=== PATIENT | female | born 1940 | race Caucasian/White ===

== ENCOUNTER 2018-11-16 15:04 | Outpatient (CLI) | payer MEDICARE ==
--- NOTE | 2018-11-16 17:20 | MRI ---
MRI LUMBAR SPINE WITHOUT CONTRAST: HISTORY: Compression fracture of L3. Back pain. COMPARISON: 11/10/2018 FINDINGS: The vertebral bodies are fairly normal in height, other than some very minimal loss of vertebral body height involving the superior endplate of L3, without any marrow edema change. This would suggest t his may be an older injury. Marked disk narrowing is seen at L2-L3, L3-L4, and L4-L5. No significan t periaortic adenopathy. There is a probable right lobe hepatic cyst seen. There is a small T2 hype rintense area. T12-L1; Unremarkable. L1-L2: Disk bulge with facet changes. No canal or foraminal stenosis. L2-L3: Degenerative facet changes at this level, asymmetrically involving the right side, minimally impressing on the right side of the thecal sac, with borderline canal narrowing. No significant fora ki narrowing. L3-L4: No significant canal stenosis. Degenerative facet changes and disk bulge are present. There is some mild left and some borderline right-sided foraminal narrowing. L4-L5: No significant central canal stenosis or degenerative facet changes present. There is some m ild bilateral foraminal narrowing, which is greater on the left, being mild to moderate on this side. L5-S1: There is an approximately 10 to 11 mm cyst impinging on the left side of the thecal sac. The left S1 nerve root appears to drape over the cyst; therefore, I think this cyst is related to the fa cet joint, as a synovial type cyst, rather than a nerve root cyst. IMPRESSION: 1. Minimal compression changes of the superior endplate of L3, which appear to be old. 2. Areas or foraminal narrowing, as discussed above. 3. Prominent cyst, which appears to arise from the left facet, at the L5-S1 level. This does impres s on the left S1 nerve root at this level. POS: [facility]
== END 2018-11-16 15:05 | disposition home or self-care (01) ==
LOC: BICMRI 15:04
PROVIDERS: ATTEND Family Medicine
DX: S32.039D Unspecified fracture of third lumbar vertebra, subsequent encounter for fracture with routine healing (principal); M48.061 Spinal stenosis, lumbar region without neurogenic claudication; M48.8X7 Other specified spondylopathies, lumbosacral region
CPT/HCPCS: 72148

== ENCOUNTER 2019-01-25 09:15 | Outpatient (CLI) | payer MEDICARE ==
[2019-01-25] MEDS ORDERED: ISOVUE-370 76%-LOCM 1 ML ONE (10:48)
--- NOTE | 2019-01-25 11:20 | CT ---
CT OF THE CHEST, ABDOMEN AND PELVIS WITH IV CONTRAST INDICATION: History of COPD and weight loss COMPARISON: Lumbar spine MR dated November 16, 2018 FINDINGS: CHEST: Lungs:There is moderate to severe COPD change. There are scattered areas of bronchiectasis with tree- in-bud nodularity involving the right upper lobe, right middle lobe, right lower lobe and left upper lobe. No confluent airspace opacity is evident. Heart and great vessels:There are moderate ulcerations involve the thoracic aorta coronary arteries. Heart size is within normal limits. Pleural space: No pneumothorax or effusion. Additional findings: No pathologically enlarged lymph nodes are evident. ABDOMEN: Liver:There is a small subcentimeter hypodensity within segment 6 of the right hepatic lobe suspiciou s for tiny cyst Spleen:Normal appearing. Pancreas:Normal appearing. Adrenal Glands:Normal appearing. Kidneys:There are small renal hypodensities bilaterally are difficult characterize due to their size but statistically are likely reflective of cysts. Aorta:There are moderate calcifications involving the abdominal pelvic vasculature. Additional findings: No pathologically enlarged lymph nodes are evident. Pelvis: Bowel:There are scattered diverticula involving the colon. There is no evidence of bowel obstruction. There is a normal appendix in the right lower quadrant of the abdomen. Bladder:Partially decompressed but otherwise unremarkable. Reproductive structures:Not well seen Rectum and perirectal soft tissues:Normal appearing. Additional findings: No free fluid or free air. Osseous structures: There is moderate thoracolumbar scoliosis. There is scattered degenerative and osteoarthritic change present. There is a stable superior endplate compression deformity of L3. IMPRESSION: 1. Moderate to severe emphysema with scattered bronchiectasis and scattered tree-in-bud nodularity basilio spicious for bronchiolitis. A follow-up CT evaluation in 6-8 weeks is recommended to document resolution. 2. Hepatic and renal cysts 3. Colonic diverticulosis 4. Stable chronic superior endplate compression abnormality of L3
== END 2019-01-25 09:16 | disposition home or self-care (01) ==
LOC: BICCT 09:15
PROVIDERS: ATTEND Family Medicine
DX: R63.4 Abnormal weight loss (principal); R68.81 Early satiety; J43.9 Emphysema, unspecified; J47.9 Bronchiectasis, uncomplicated; N28.1 Cyst of kidney, acquired; K76.89 Other specified diseases of liver; K57.30 Diverticulosis of large intestine without perforation or abscess without bleeding; Z87.891 Personal history of nicotine dependence
CPT/HCPCS: 71250; 71260; 74177; Q9966

== ENCOUNTER 2019-05-03 08:43 | Outpatient (CLI) | payer MEDICARE ==
--- NOTE | 2019-05-03 09:21 | RAD ---
TWO VIEW CHEST: HISTORY: COPD. Shortness of breath. FINDINGS: Lungs show hyperexpansion with flattened diaphragms. No infiltrate or evidence of vascular congestio n. Heart size within normal range. IMPRESSION: Hyperexpansion consistent with chronic obstructive pulmonary disease. No focal infiltrate identified . POS: [facility]
== END 2019-05-03 08:44 | disposition home or self-care (01) ==
LOC: BICRAD 08:43
PROVIDERS: ATTEND Physician Assistant
DX: J44.1 Chronic obstructive pulmonary disease with (acute) exacerbation (principal)
CPT/HCPCS: 71046

== ENCOUNTER 2019-05-23 07:15 | Outpatient (CLI) | payer MEDICARE ==
--- NOTE | 2019-05-23 10:35 | CT ---
CT OF CHEST PERFORMED WITH AND WITHOUT INTRAVENOUS CONTRAST ENHANCEMENT: HISTORY: COPD, shortness of breath. FINDINGS: COMPARISON: A 01/25/2019 exam. There are severe chronic lung changes seen. Subtle areas of tree-in-bud nodularity are again demonst rated in both lung su. These changes are felt to be fairly stable as compared to the prior exam. Slightly more prominent areas of nodularity in the right lower lobe and in a paravertebral location are again seen also unchanged since the prior study. There is no significant mediastinal or hilar adenopathy. Visualized liver parenchyma shows no focal findings. IMPRESSION: Chronic lung changes. Areas of subtle nodularity in both lung su, some of which has a tree-in-bu d nodular appearance which are all felt to be stable as compared to the prior exam. The changes do p robably warrant a followup with a 6-month followup CT study which could be performed as a noncontrast exam. POS: OFF
[2019-05-23] MEDS ORDERED: ISOVUE-370 76%-LOCM 1 ML ONE (15:24)
== END 2019-05-23 07:16 | disposition home or self-care (01) ==
LOC: BICCT 07:15
PROVIDERS: ATTEND Physician Assistant
DX: J44.9 Chronic obstructive pulmonary disease, unspecified (principal); R91.8 Other nonspecific abnormal finding of lung field; Z87.891 Personal history of nicotine dependence
CPT/HCPCS: 71270; Q9966

== ENCOUNTER 2019-06-12 08:39 | Outpatient (CLI) | payer MEDICARE ==
--- NOTE | 2019-06-12 09:24 | RAD ---
CHEST 2 VIEWS: HISTORY: COPD exacerbation, shortness of breath. COMPARISON: 05/03/2019. FINDINGS: Marked bilateral hyperinflation with flattening of the hemidiaphragms and increased linear and inters titial markings bilaterally, evidence for stable chronic change. Heart size is normal. No acute con fluent pneumonia, overt edema, or other acute process. IMPRESSION: Stable hyperinflation and chronic lung changes. No significant acute process. Atherosclerosis of th e aorta. POS: OFF
== END 2019-06-12 08:40 | disposition home or self-care (01) ==
LOC: RAD 08:39
PROVIDERS: ATTEND Internal Medicine Critical Care Medicine
DX: R06.00 Dyspnea, unspecified (principal); I70.0 Atherosclerosis of aorta
CPT/HCPCS: 71046

== ENCOUNTER 2019-06-15 08:01 | Day surgery (SDC) | payer MEDICARE ==
[2019-06-14 12:20] VITALS: BMI 14.1
[2019-06-15] MEDS ORDERED: PROPOFOL 200 MG/20 ML VIAL ONE (14:51)
[2019-06-15] MEDS ORDERED: PHENYLEPHRINE-NS 100 MCG/ML 10 ML SYRINGE ONE (14:51)
[2019-06-15] MEDS ORDERED: Lidocaine 1% PF 5 ML VIAL ONE (14:51)
--- NOTE | 2019-06-15 18:26 | OP ---
DATE OF PROCEDURE: 06/15/2019 PROCEDURES PERFORMED: Esophagogastroduodenoscopy with biopsy and colonoscopy. PREOPERATIVE DIAGNOSES: Weight loss and Hemoccult-positive stool. DESCRIPTION OF PROCEDURE: Informed consent was obtained from the patient. She was sedated with total intravenous anesthesia. The bite block was placed, and the endoscope was advanced easily to the second portion of the duodenum, and retroflexion was performed in the stomach. The esophagus had a nonobstructing ring in the distal esophagus. The esophagus was otherwise normal. The stomach had moderate erythematous gastritis in the antrum. Biopsies were obtained to rule out H pylori. The remainder of the gastric mucosa was unremarkable including retroflexed views. The pylorus and first and second portions of the duodenum were normal. The patient was turned around. Rectal exam was performed and was normal. The colonoscope was advanced to the terminal ileum with some difficulty due to a fixed flexure in the sigmoid colon. The preparation quality was good. The mucosa of the terminal ileum was normal. The ileocecal valve and appendiceal orifice were clearly identified. The colonic mucosa was normal throughout. There was severe diverticulosis in the sigmoid colon. Retroflexed views in the rectum were normal. IMPRESSION: 1. Moderate erythematous antral gastritis, biopsied to rule out Helicobacter pylori. 2. Nonobstructing esophageal ring in the distal esophagus, left alone. 3. Otherwise normal esophagogastroduodenoscopy. 4. Sigmoid severe diverticulosis. 5. Otherwise normal colonoscopy to the terminal ileum. RECOMMENDATIONS: 1. Await histopathology. 2. Follow up in the office in 4 weeks. 3. She should not require future colonoscopy based on age. Job ID: [id number]
== END 2019-06-15 12:00 | disposition home or self-care (01) ==
LOC: SDC 08:01
PROVIDERS: ATTEND Internal Medicine Gastroenterology
PROC: 0DB78ZX Excision of Stomach, Pylorus, Via Natural or Artificial Opening Endoscopic, Diagnostic (ICD-10-PCS; principal; 2019-06-15)
PROC: 0DJD8ZZ Inspection of Lower Intestinal Tract, Via Natural or Artificial Opening Endoscopic (ICD-10-PCS; 2019-06-15)
DX: K57.31 Diverticulosis of large intestine without perforation or abscess with bleeding (principal); K29.71 Gastritis, unspecified, with bleeding; K22.2 Esophageal obstruction; R63.4 Abnormal weight loss; I10 Essential (primary) hypertension; J43.9 Emphysema, unspecified; J45.909 Unspecified asthma, uncomplicated; Z87.891 Personal history of nicotine dependence; Z79.52 Long term (current) use of systemic steroids; Z79.82 Long term (current) use of aspirin; Z79.83 Long term (current) use of bisphosphonates; Z79.899 Other long term (current) drug therapy
CPT/HCPCS: 88305; 88312; J2001; J2704

== ENCOUNTER 2019-10-11 10:26 | Outpatient (CLI) | payer MEDICARE ==
--- NOTE | 2019-10-11 11:29 | RAD ---
CHEST TWO VIEWS: HISTORY: Dyspnea. COMPARISON: 06/12/2019 FINDINGS: Stable bilateral hyperinflation and chronic lung changes. Biapical pleural thickening. Bony demineral ization. Heart size is within normal limits. IMPRESSION: 1. Stable hyperinflation and chronic lung change. 2. Atherosclerosis of the aorta with ectasia. POS: OFF
== END 2019-10-11 10:27 | disposition home or self-care (01) ==
LOC: RAD 10:26
PROVIDERS: ATTEND Internal Medicine Critical Care Medicine
DX: R06.00 Dyspnea, unspecified (principal); I77.810 Thoracic aortic ectasia; I70.0 Atherosclerosis of aorta; J98.4 Other disorders of lung
CPT/HCPCS: 71046

== ENCOUNTER 2020-10-04 17:43 | Inpatient (IN) | payer MEDICARE ==
[~2020-10-04 17:43] MED LIST: Iopamidol-370 76% 500 ML 1 ML ONE
[2020-10-04] MEDS ORDERED: Ondansetron PF 4 MG/2 ML Vial ONE (18:44)
[2020-10-04 19:11] LABS: Bacteria/HPF None Seen HPF (None Seen); Bilirubin Negative (Negative); Blood, Urine Trace (Negative); Clarity Clear (Clear); Glucose, Urine (Dipstick) Normal (Negative); Ketone, Urine 10 mg/dL (Negative); Leukocyte 25 Leu/uL (Negative); Nitrite Negative (Negative); Protein, Urine (Dipstick) 30 mg/dL (Neg-Trace); Squamous Epithelial 0-3 HPF (0-3); Urobilinogen Normal mg/dL (Less than 2); pH, Urine 5.5 (5.0-9.0)
[2020-10-04 19:16] LABS: #Lymphocytes 0.9 thou/uL (1.20-3.40); #Monocytes 0.4 thou/uL (0.11-0.59); #Neutrophils 6.4 thou/uL (1.40-6.50); %Basophils 0.2 % (0.0-1.0); %Eosinophils 0.5 % (0.0-10.0); %Lymphocytes 11.8 % (21.0-51.0); %Monocytes 4.9 % (0.0-10.0); %Neutrophils 82.5 % (42.0-75.0); Hemoglobin 13.6 g/dL (12.0-16.0); Mean Corpuscular HGB CONC 33.8 g/dL (32.0-36.0); Mean Corpuscular Hemoglobin 30.8 pg (27.0-31.0); Mean Platelet Volume 7.8 fL (7.4-10.4); Platelet Count 221 thou/uL (130-400); Red Blood Cell (RBC) Count 4.43 mill/uL (4.20-5.40); White Blood Cell (WBC) Count 7.7 thou/uL (4.8-10.8)
[2020-10-04 19:39] LABS: ALT (SGPT) 16 U/L (8-55); AST (SGOT) 22 U/L (5-34); Albumin 3.8 g/dL (3.4-4.8); Alkaline Phosphatase 43 U/L (40-110); Anion Gap 18 mmol/L (10-20); BUN (Urea Nitrogen) 19 mg/dL (9.8-20.1); Bilirubin, Total 0.5 mg/dL (0.2-1.2); Calc. Creatinine Clearance 0 mL/min (70-130); Calcium 9.1 mg/dL (7.8-10.44); Carbon Dioxide 26 mmol/L (23-31); Chloride 101 mmol/L (98-107); Globulin 2.7 g/dL (2.4-3.5); Glucose 115 mg/dL (83-110); Lipase 25 U/L (8-78); Potassium 4.9 mmol/L (3.5-5.1); Protein, Total 6.5 g/dL (6.0-8.3); Sodium 140 mmol/L (136-145)
[2020-10-04 20:08] LABS: CKMB 3.6 ng/mL (0-6.6)
--- NOTE | 2020-10-04 20:43 | CT ---
CT ABDOMEN AND PELVIS WITH IV CONTRAST: 10/04/20 HISTORY: Acute onset abdominal pain. Patient had a normal bowel movement this morning. Nausea began around 5 p .m. COMPARISON: 01/25/19. FINDINGS: Changes of COPD are again seen in the visualized lung su. Small cyst in segment of the right h epatic lobe is again noted. The spleen, pancreas, adrenal glands appear normal. Small renal cysts a re again seen. No free air, free fluid or lymphadenopathy is seen in the abdomen or pelvis. There are vascular calci fications without evidence of aneurysmal dilatation of the abdominal aorta. Degenerative changes and scoliosis of the spine are again seen. The small bowel loops are prominent with some of them demonstrating feculant material. Appendix is no t definitely visualized. There is sigmoid diverticulosis. IMPRESSION: Small bowel feces sign, suspicious for subacute or low grade small bowel obstruction. Other possibili ties include metabolic or infectious disease. POS: OFF
[2020-10-04] MEDS ORDERED: Morphine 4 MG/ML VIAL ONE (21:44)
[2020-10-04] MEDS ORDERED: hydrALAZINE 20 MG/ML VIAL SLOW IVP PRN (22:04)
[2020-10-04] MEDS ORDERED: Labetalol HCl 100 MG/20 ML VIAL SLOW IVP PRN (22:04)
[2020-10-04] MEDS ORDERED: cloNIDine 0.1 MG TAB PO PRN (22:04)
[2020-10-04] MEDS ORDERED: Guaifenesin DM 100-10/5 ML UDCUP PO PRN (22:04)
[2020-10-04] MEDS ORDERED: Promethazine HCl 12.5 MG in Sodium Chloride 0.9% 50 ML IVPB PRN (22:04)
[2020-10-04] MEDS ORDERED: Ondansetron PF 4 MG/2 ML Vial IVP PRN (22:04)
--- NOTE | 2020-10-04 22:05 | PDOC.HHP ---
Hospitalist HPI - History of Present Illness Abdominal pain History of Present Illness: Patient is a 80 year old female with PMH COPD on daily steroids presents for abdominal pain beginning at 11am today. Patient states the pain started in her very low abdomen but has moved upward since that time. Last BM was this morning and normal. Nausea began around 5pm, but she was able to complete her breathing treatments. Denies fever, vomiting, lightheadedness, vision changes, blood in stool, or urinary symptoms. In ED, CT A/P concerning most for subacute/low grade SBO, troponin mildly elevated, patient admitted for small bowel obstruction, surgery to consult and ED physician discussed with them. Hospitalist ROS - Review of Systems Constitutional: denies: fever, chills, sweats, weakness, malaise, other Eyes: denies: pain, vision change, conjunctivae inflammation, eyelid inflammation, redness, other ENT: denies: ear pain, ear discharge, nose pain, nose discharge, nose congestion, mouth pain, mouth swelling, throat pain, throat swelling, other Respiratory: denies: cough, dry, shortness of breath, hemoptysis, SOB with excertion, pleuritic pain, sputum, wheezing, other Cardiovascular: denies: chest pain, palpitations, orthopnea, paroxysmal noc. dyspnea, edema, light headedness, other Gastrointestinal: reports: abdominal pain. denies: nausea, vomiting, diarrhea, constipation, melena, hematochezia, other Genitourinary: denies: dysuria, frequency, incontinence, hematuria, retention, other Musculoskeletal: denies: neck pain, shoulder pain, arm pain, back pain, hand pain, leg pain, foot pain, other Skin: denies: rash, lesions, diana, bruising, other Neurological: denies: weakness, numbness, incoordination, change in speech, confusion, seizures, other All other systems reviewed; all pertinent +/- noted in HPI/Subj - Medication Medications: reviewed. see admission documents. Hospitalist History - Past Medical History Other Medical History: copd, asthma - Past Surgical History Other Surgical History: hysterectomy - Family History Family History: reports: no pertinent history - Social History Smoking Status: Former smoker - Exam General Appearance: NAD, awake alert Eye: PERRL, anicteric sclera ENT: normocephalic atraumatic, no oropharyngeal lesions, moist mucosa Neck: supple, symmetric, no JVD, no thyromegaly, no lymphadenopathy, no carotid bruit Heart: RRR, no murmur, no gallops, no rubs, normal peripheral pulses Respiratory: CTAB, no wheezes, no rales, no ronchi, normal chest expansion, no tachypnea, normal percussion Gastrointestinal: soft, non-tender, non-distended, normal bowel sounds, no palpable masses, no hepatomegaly, no splenomegaly, no bruit Extremities: no cyanosis, no clubbing, no edema Skin: normal turgor, no lesions, no rashes Neurological: cranial nerve grossly intact, normal sensation to touch, no weakness, no focal deficits, no new deficit Musculoskeletal: normal tone, normal strength, no muscle wasting Psychiatric: normal affect, normal behavior, A&O x 3 Hospitalist Results - Labs Result Diagrams: 10/04/20 19:06 10/04/20 19:06 Lab results: WBC 7.7 thou/uL (4.8-10.8) 10/04/20 19:06 Hgb 13.6 g/dL (12.0-16.0) 10/04/20 19:06 Hct 40.3 % (36.0-47.0) 10/04/20 19:06 MCV 91.0 fL (78.0-98.0) 10/04/20 19:06 Plt Count 221 thou/uL (130-400) 10/04/20 19:06 Neutrophils % 82.5 % (42.0-75.0) H 10/04/20 19:06 Sodium 140 mmol/L (136-145) 10/04/20 19:06 Potassium 4.9 mmol/L (3.5-5.1) 10/04/20 19:06 Chloride 101 mmol/L (98-107) 10/04/20 19:06 Carbon Dioxide 26 mmol/L (23-31) 10/04/20 19:06 BUN 19 mg/dL (9.8-20.1) 10/04/20 19:06 Creatinine 0.74 mg/dL (0.6-1.1) 10/04/20 19:06 Glucose 115 mg/dL (83-110) H 10/04/20 19:06 Calcium 9.1 mg/dL (7.8-10.44) 10/04/20 19:06 Total Bilirubin 0.5 mg/dL (0.2-1.2) 10/04/20 19:06 AST 22 U/L (5-34) 10/04/20 19:06 ALT 16 U/L (8-55) 10/04/20 19:06 Alkaline Phosphatase 43 U/L (40-110) 10/04/20 19:06 CK-MB (CK-2) 3.6 ng/mL (0-6.6) 10/04/20 19:06 Troponin I 0.030 ng/mL (< 0.028) H 10/04/20 19:06 Serum Total Protein 6.5 g/dL (6.0-8.3) 10/04/20 19:06 Albumin 3.8 g/dL (3.4-4.8) 10/04/20 19:06 Lipase 25 U/L (8-78) 10/04/20 19:06 Urine Ketones 10 mg/dL (Negative) A 10/04/20 18:47 Urine Blood Trace (Negative) A 10/04/20 18:47 Urine Nitrite Negative (Negative) 10/04/20 18:47 Ur Leukocyte Esterase 25 Priscilla/uL (Negative) A 10/04/20 18:47 Urine RBC 4-6 HPF (0-3) A 10/04/20 18:47 Urine WBC 4-6 HPF (0-3) A 10/04/20 18:47 Ur Squamous Epith Cells 0-3 HPF (0-3) 10/04/20 18:47 Urine Bacteria None Seen HPF (None Seen) 10/04/20 18:47 Additional comment: VITAL SIGNS WedOct 04, 2020 18:02 SAHGUFTA [place], [place] BP: 171/91 MAP: 117 Pulse: 92 Resp: 18 Pain: 8 O2 sat: 99 on (2L Oxygen) Time: 10/04/2020 18:02. CT Abdomen Pelvis W Con Observe DT: WedOct 04, 2020 18:[address] ABDOMEN AND PELVIS WITH IV CONTRAST: 10/04/20 HISTORY: Acute onset abdominal pain. Patient had a normal bowel movement this morning. Nausea began around 5 p .m. COMPARISON: 01/25/19. FINDINGS: Changes of COPD are again seen in the visualized lung su. Small cyst in segment of the right h epatic lobe is again noted. The spleen, pancreas, adrenal glands appear normal. Small renal cysts a re again seen. No free air, free fluid or lymphadenopathy is seen in the abdomen or pelvis. There are vascular calci fications without evidence of aneurysmal dilatation of the abdominal aorta. Degenerative changes and scoliosis of the spine are again seen. The small bowel loops are prominent with some of them demonstrating feculant material. Appendix is no t definitely visualized. There is sigmoid diverticulosis. IMPRESSION: Small bowel feces sign, suspicious for subacute or low grade small bowel obstruction. Other possibili ties include metabolic or infectious disease. Hospitalist H&P A/P - Plan Plan: Patient is a 80 year old female with PMH COPD on daily steroids presents for abdominal pain beginning at 11am today. # small bowel obstruction - low grade/subacute by imaging, last BM was this morning and normal, in ED, CT A/P concerning most for subacute/low grade SBO - admit to floor - consult surgery - morphine PRN - NPO - IVF - PRN nausea medications - offered NGT, family and patient declined but will contact us if pain worsens and patient needs decompression # COPD - on daily steroids normally - change to IV steroids while NPO - scheduled nebs - resume home nebs once med rec complete # elevated trroponin - mild, trend and consider cardiac workup once surgery issues resolve DVT ppx full code
[2020-10-04] MEDS ORDERED: Electrolyte Replacement Protocol 1 EACH FS PRN (22:15)
[2020-10-04 22:30] LABS: Troponin I 0.123 ng/mL (< 0.028)
[2020-10-05 00:22] VITALS: BMI 16.0
[2020-10-05] MEDS ORDERED: Sodium Chloride 0.9% 1,000 ML IV SCH (00:30)
[2020-10-05] MEDS: methylPREDNISolone Sod Succ 40 MG VIAL IVP SCH ×3 (01:04→18:31)
[2020-10-05] MEDS: Sodium Chloride 0.9% 1,000 ML IV SCH ×5 (01:04→22:30)
[2020-10-05] MEDS: Morphine 2 MG/ML VIAL SLOW IVP PRN ×3 (01:12→20:22)
[2020-10-05 01:37] LABS: Troponin I 0.172 ng/mL (< 0.028)
[2020-10-05 04:16] LABS: SARS-CoV-2 PCR by NAA Not Detected (NotDetected)
[2020-10-05 06:07] LABS: #Lymphocytes 0.4 thou/uL (1.20-3.40); #Monocytes 0.1 thou/uL (0.11-0.59); #Neutrophils 8.9 thou/uL (1.40-6.50); %Basophils 0.1 % (0.0-1.0); %Eosinophils 0.1 % (0.0-10.0); %Lymphocytes 4.4 % (21.0-51.0); %Monocytes 0.6 % (0.0-10.0); %Neutrophils 94.8 % (42.0-75.0); Hemoglobin 13.8 g/dL (12.0-16.0); Mean Corpuscular HGB CONC 32.9 g/dL (32.0-36.0); Mean Corpuscular Hemoglobin 30.3 pg (27.0-31.0); Mean Corpuscular Volume 92.1 fL (78.0-98.0); Mean Platelet Volume 8.1 fL (7.4-10.4); Platelet Count 224 thou/uL (130-400); Red Blood Cell (RBC) Count 4.56 mill/uL (4.20-5.40); White Blood Cell (WBC) Count 9.4 thou/uL (4.8-10.8)
[2020-10-05 06:29] LABS: Anion Gap 15 mmol/L (10-20); BUN (Urea Nitrogen) 13 mg/dL (9.8-20.1); Calc. Creatinine Clearance 40 mL/min (70-130); Calcium 8.3 mg/dL (7.8-10.44); Carbon Dioxide 22 mmol/L (23-31); Chloride 105 mmol/L (98-107); Glucose 127 mg/dL (83-110); Magnesium 1.8 mg/dL (1.6-2.6); Potassium 4.8 mmol/L (3.5-5.1); Sodium 137 mmol/L (136-145)
[2020-10-05] MEDS ORDERED: Magnesium 2 GM/50 ML 2 GM in Premix Bag 1 BAG IVPB SCH (07:00)
[2020-10-05] MEDS ORDERED: FLU VACC QS2020-21(65YR UP)/PF 240 MCG/0.7 ML SYRINGE IM ONE (09:00)
[2020-10-05] MEDS: Famotidine 20 MG TAB PO SCH ×2 (09:22→20:22)
[2020-10-05 10:44] LABS: Troponin I 0.101 ng/mL (< 0.028)
--- NOTE | 2020-10-05 13:00 | PDOC.CONS ---
- Consultation Encounter Date: 10/05/20 Encounter Time: 09:25 CHIEF COMPLAINT: Abdominal pain HISTORY OF PRESENT ILLNESS: 80-year-old female presented to the emergency department 1 day history of abdominal pain. At the time of presentation, the pain was located in the mid abdomen and epigastrium. This was described as a sharp pain. This morning the pain is transition to her lower abdomen and is described as colicky. Her last bowel movement was reported to have been normal yesterday morning. She denies any flatus since that time. She endorses a single episode of light green emesis this morning, but is not currently nauseous. Computed tomography the abdomen demonstrated fecalization changes in segments of the small bowel with mild dilation at 2.5 to 2.8 cm. No obvious transition point. She was admitted to the hospitalist service with a diagnosis of small bowel obstruction and dehydration. REVIEW OF SYSTEMS: General: Denies recent weight changes, fever, or chills. Eyes: Denies visual changes, pain, or irritation ENT: Denies changes in hearing, nasal discharge, or sore throat Cardiovascular: Denies chest pain, palpitations, shortness of breath, or edema. Respiratory: Consistent with history of COPD Gastrointestinal: Per HPI Genitourinary: Denies frequent urination or dysuria Musculoskeletal: Denies pain or restricted motion Integumentary: Denies abnormal rashes, sores, or skin lesions Neurological: Denies numbness, tingling, or weakness. Psychiatric: Denies new onset anxiety or depression Endocrine: Denies temperature intolerances, polyuria, or excessive thirst Hematologic: Denies abnormal bruising or bleeding PAST MEDICAL HISTORY: COPD PAST SURGICAL HISTORY: Hysterectomy FAMILY HISTORY: Heart disease Gastrointestinal cancer SOCIAL HISTORY Former smoker, denies illicit drug use, endorses occasional alcohol consumption. ALLERGIES: No known drug allergies PHYSICAL EXAM: Vital Signs: HR 101 BP 149/69 T 98.8 RR 19 SpO2 [ ] General: Alert and oriented, no acute distress ENT: Sclera anicteric, pupils equal and reactive, mucous membranes moist Neck: No jugular venous distention, trachea midline Cardiovascular: Regular rate and rhythm Pulmonary: Clear to auscultation Abdominal: Soft, nondistended, nontender Genitourinary: Normal anatomy Rectal: Deferred Integument: No abnormal rashes or lesions Musculoskeletal: No gross deformities or edema, normal range of motion LABORATORY: Laboratory analysis reviewed and demonstrates a white blood cell count of 9.4 and hemoglobin of 13.8. Indeterminate troponin upon admission repeat labs pending IMAGING: Computed tomography abdomen reviewed as well as radiology interpretation. Demonstrates mildly dilated small bowel at 2.5 to 2.8 cm with evidence of fecalization. ASSESSMENT: 80-year-old female with dehydration and possible partial small bowel obstruction. PLAN: The natural history of bowel obstruction was discussed in detail with the patient and her daughter. We will proceed with conservative management. No p.o. (okay to have ice chips and sips for comfort). Will defer nasogastric tube placement given lack of nausea and consistent emesis. Plan for small bowel follow-through if obstruction does not resolve. We will continue to follow.
--- NOTE | 2020-10-05 13:12 | PDOC.HOSPP ---
- Subjective Encounter Date: 10/05/20 Subjective: The patient denied any bowel movements or passing gas today. She complained of vomiting and abdominal cramps this morning. - Objective Vital Signs & Weight: Vital Signs (12 hours) Temp Pulse Resp BP Pulse Ox 10/05/20 08:15 98.8 F 100 16 124/67 98 10/05/20 08:14 101 H 14 10/05/20 03:58 98.8 F 100 16 149/69 H 98 Weight Weight 84 lb 14.047 oz I&O: 10/04/20 10/05/20 10/06/20 06:59 06:59 06:59 Intake Total 700 Balance 700 Result Diagrams: 10/05/20 05:44 10/05/20 05:44 Hospitalist ROS - Medication Medications: Active Medications Generic Name Dose Route Start Last Admin Trade Name Freq PRN Reason Stop Dose Admin Albuterol/Ipratropium 3 ml 10/05/20 07:00 10/05/20 08:14 Ipratropium/Albuterol Sulfate 3 Ml Neb NEB 3 ml [id number] LISS Administration Famotidine 20 mg 10/05/20 09:00 10/05/20 09:22 Famotidine 20 Mg Tab PO 20 mg BID LISS Administration Sodium Chloride 1,000 mls @ 100 mls/hr 10/04/20 22:15 10/05/20 09:22 Normal Saline 0.9% IV 1,000 mls .Q10H LISS Administration Methylprednisolone Sodium Succinate 40 mg 10/05/20 01:00 10/05/20 09:23 Methylprednisolone Sod Succ 40 Mg Vial IVP 40 mg 0100,0900,1700 LISS Administration Morphine Sulfate 2 mg 10/04/20 22:04 10/05/20 12:27 Morphine 2 Mg/Ml Vial SLOW IVP 2 mg Q4H PRN Administration severe pain 4-10 Ondansetron HCl 4 mg 10/04/20 22:04 10/05/20 09:37 Ondansetron Pf 4 Mg/2 Ml Vial IVP 4 mg Q6H PRN Administration Nausea/Vomiting use 1st - Exam General Appearance: awake alert Neck: supple, no JVD Respiratory: normal chest expansion, no tachypnea Gastrointestinal: soft, non-tender, non-distended, diminished bowl sounds Neurological: cranial nerve grossly intact, no weakness Hosp A/P (1) Small bowel obstruction Code(s): K56.609 - UNSP INTESTNL OBST, UNSP TO PARTIAL VERSUS COMPLETE OBST Status: Acute (2) COPD (chronic obstructive pulmonary disease) Status: Acute (3) Elevated troponin Code(s): R77.8 - OTHER SPECIFIED ABNORMALITIES OF PLASMA PROTEINS Status: Acute - Plan 80-year-old female with past medical history of COPD and partial hysterectomy who was admitted to the hospital with complaints of abdominal pain. Imaging studies were suggestive of small bowel obstruction. Patient was vomiting this morning and did not have any bowel movements or p assage of gas yet. We we will continue to monitor her closely. She is n.p.o. except for medications with sips of water and ice chips. The patient was encouraged to ambulate. If her condition does not improve by tomorrow small bowel follow-through study will be arranged. Her COPD appears to be stable at this time. Troponin was slightly elevated and trending down. This is likely due to supply demand mismatch related to dehydration.
[2020-10-05] MEDS: Enoxaparin Sodium 40 MG/0.4 ML SYRINGE SC SCH (20:23)
[2020-10-06] MEDS: methylPREDNISolone Sod Succ 40 MG VIAL IVP SCH ×3 (00:29→17:22)
[2020-10-06 05:48] LABS: #Lymphocytes 0.5 thou/uL (1.20-3.40); #Monocytes 0.1 thou/uL (0.11-0.59); #Neutrophils 10.2 thou/uL (1.40-6.50); %Lymphocytes 4.5 % (21.0-51.0); %Monocytes 1.2 % (0.0-10.0); %Neutrophils 94.2 % (42.0-75.0); Hemoglobin 13.1 g/dL (12.0-16.0); Mean Corpuscular Hemoglobin 30.6 pg (27.0-31.0); Mean Corpuscular Volume 92.8 fL (78.0-98.0); Mean Platelet Volume 7.9 fL (7.4-10.4); Platelet Count 193 thou/uL (130-400); RBC Distribution Width 12.1 % (11.5-14.5); Red Blood Cell (RBC) Count 4.27 mill/uL (4.20-5.40); White Blood Cell (WBC) Count 10.8 thou/uL (4.8-10.8)
[2020-10-06 06:08] LABS: Anion Gap 11 mmol/L (10-20); BUN (Urea Nitrogen) 15 mg/dL (9.8-20.1); Calc. Creatinine Clearance 42 mL/min (70-130); Calcium 7.5 mg/dL (7.8-10.44); Carbon Dioxide 23 mmol/L (23-31); Chloride 108 mmol/L (98-107); Glucose 113 mg/dL (83-110); Magnesium 2.1 mg/dL (1.6-2.6); Potassium 4.9 mmol/L (3.5-5.1); Sodium 137 mmol/L (136-145)
--- NOTE | 2020-10-06 07:29 | PDOC.BPN ---
- Brief Progress Note Encounter Date: 10/06/20 Encounter Time: 07:28 Doing well. No further emesis or pain. Continues to deny flatus or bowel movement EXAM: VS: T 97.9 HR 100 BP 124/66 RR 18 General: Alert and oriented, no acute distress, resting comfortably Pulmonary: No dyspnea or difficulty breathing Abdomen: Soft, non-distended, nontender CV: Regular rate and rhythm, palpable distal pulses Extremities: No edema I/O: N.p.o. oral intake Multiple voids UOP LABORATORY / IMAGING: No new labs PLAN: 80-year-old female with abdominal pain and CT findings concerning for possible small bowel obstruction. Continue conservative management. MiraLAX daily Enema today Consider small bowel follow-through tomorrow
[2020-10-06] MEDS ORDERED: Fleet Enema 133 ML BOT PR SCH ×2 (07:45→12:30)
[2020-10-06] MEDS: Sodium Chloride 0.9% 1,000 ML IV SCH ×2 (09:13→17:22)
[2020-10-06] MEDS: Famotidine 20 MG TAB PO SCH ×2 (09:19→19:59)
[2020-10-06] MEDS: Polyethylene Glycol 3350 17 GM Packet PO SCH (09:20)
--- NOTE | 2020-10-06 12:19 | PDOC.HOSPP ---
- Subjective Encounter Date: 10/06/20 Subjective: Patient did not have bowel movement or passage of gas today. - Objective Vital Signs & Weight: Vital Signs (12 hours) Temp Pulse Resp BP Pulse Ox 10/06/20 08:40 98.1 F 92 18 117/66 99 10/06/20 08:31 78 16 99 10/06/20 04:36 98.4 F 82 18 128/97 H 99 10/06/20 00:18 97.9 F 100 18 124/66 95 Weight Admit Weight 84 lb 14.032 oz Weight 84 lb 14.032 oz I&O: 10/05/20 10/06/20 10/07/20 06:59 06:59 06:59 Intake Total 700 1230 Balance 700 1230 Result Diagrams: 10/06/20 05:36 10/06/20 05:36 Hospitalist ROS - Medication Medications: Active Medications Generic Name Dose Route Start Last Admin Trade Name Freq PRN Reason Stop Dose Admin Albuterol/Ipratropium 3 ml 10/05/20 07:00 10/06/20 08:31 Ipratropium/Albuterol Sulfate 3 Ml Neb NEB 3 ml [id number] LISS Administration Enoxaparin Sodium 40 mg 10/05/20 21:00 10/05/20 20:23 Enoxaparin Sodium 40 Mg/0.4 Ml Syringe SC 40 mg 2100 LISS Administration Famotidine 20 mg 10/05/20 09:00 10/06/20 09:19 Famotidine 20 Mg Tab PO 20 mg BID LISS Administration Sodium Chloride 1,000 mls @ 100 mls/hr 10/04/20 22:15 10/06/20 09:13 Normal Saline 0.9% IV 1,000 mls .Q10H LISS Administration Methylprednisolone Sodium Succinate 40 mg 10/05/20 01:00 10/06/20 09:19 Methylprednisolone Sod Succ 40 Mg Vial IVP 40 mg 0100,0900,1700 LISS Administration Morphine Sulfate 2 mg 10/04/20 22:04 10/05/20 20:22 Morphine 2 Mg/Ml Vial SLOW IVP 2 mg Q4H PRN Administration severe pain 4-10 Ondansetron HCl 4 mg 10/04/20 22:04 10/05/20 09:37 Ondansetron Pf 4 Mg/2 Ml Vial IVP 4 mg Q6H PRN Administration Nausea/Vomiting use 1st Polyethylene Glycol 17 gm 10/06/20 09:00 10/06/20 09:20 Polyethylene Glycol 3350 17 Gm Packet PO 17 gm DAILY LISS Administration - Exam General Appearance: awake alert ENT: normocephalic atraumatic Neck: supple, no JVD Respiratory: normal chest expansion, no tachypnea Extremities: no cyanosis, no clubbing Hosp A/P (1) Small bowel obstruction Code(s): K56.609 - UNSP INTESTNL OBST, UNSP TO PARTIAL VERSUS COMPLETE OBST Status: Acute (2) COPD (chronic obstructive pulmonary disease) Status: Acute (3) Elevated troponin Code(s): R77.8 - OTHER SPECIFIED ABNORMALITIES OF PLASMA PROTEINS Status: Acute - Plan 80-year-old female with past medical history of COPD and partial hysterectomy who was admitted to the hospital with complaints of abdominal pain. Imaging studies were suggestive of small bowel obstruction. Patient was vomiting this morning and did not have any bowel movements or pass age of gas yet. We we will continue to monitor her closely. She is n.p.o. except for medications with sips of water and ice chips. The patient was encouraged to ambulate. If her condition does not improve by tomorrow small bowel follow-through study will be arranged. Her COPD appears to be stable at this time. Troponin was slightly elevated and trending down. This is likely due to supply demand mismatch related to dehydration. 10/06: No nausea or vomiting today. Still no bowel movements. Neurologic never ordered. If the patient does not respond by tomorrow, small bowel follow-through study will likely be performed.
[2020-10-06] MEDS: Enoxaparin Sodium 40 MG/0.4 ML SYRINGE SC SCH (19:59)
[2020-10-06] MEDS: Morphine 2 MG/ML VIAL SLOW IVP PRN (19:59)
[2020-10-07] MEDS: methylPREDNISolone Sod Succ 40 MG VIAL IVP SCH ×2 (00:17→08:49)
[2020-10-07] MEDS: Sodium Chloride 0.9% 1,000 ML IV SCH (00:17)
[2020-10-07 05:29] LABS: #Lymphocytes 0.5 thou/uL (1.20-3.40); #Monocytes 0.2 thou/uL (0.11-0.59); #Neutrophils 7.2 thou/uL (1.40-6.50); %Eosinophils 0.1 % (0.0-10.0); %Lymphocytes 5.8 % (21.0-51.0); %Neutrophils 92.1 % (42.0-75.0); Hemoglobin 11.9 g/dL (12.0-16.0); Mean Corpuscular HGB CONC 31.5 g/dL (32.0-36.0); Mean Corpuscular Hemoglobin 29.1 pg (27.0-31.0); Mean Corpuscular Volume 92.5 fL (78.0-98.0); Platelet Count 179 thou/uL (130-400); White Blood Cell (WBC) Count 7.8 thou/uL (4.8-10.8)
[2020-10-07 05:49] LABS: Anion Gap 12 mmol/L (10-20); BUN (Urea Nitrogen) 17 mg/dL (9.8-20.1); Calc. Creatinine Clearance 46 mL/min (70-130); Calcium 7.4 mg/dL (7.8-10.44); Carbon Dioxide 25 mmol/L (23-31); Chloride 107 mmol/L (98-107); Glucose 106 mg/dL (83-110); Magnesium 2.1 mg/dL (1.6-2.6); Potassium 4.8 mmol/L (3.5-5.1); Sodium 139 mmol/L (136-145)
[2020-10-07] MEDS: Polyethylene Glycol 3350 17 GM Packet PO SCH (08:48)
[2020-10-07] MEDS: Famotidine 20 MG TAB PO SCH (08:49)
[2020-10-07 12:13] VITALS: BP 139/70; TEMP 98.2
--- NOTE | 2020-10-07 12:57 | PDOC.DS.DS ---
Provider - Provider Date of Admission: 10/04/20 20:52 Date of Discharge: 10/07/20 Admitting Provider: Andrew Miller MD Primary Care Physician: Unknown Course - Hospital Course Hospital Course: The patient is a 80-year-old female with past medical history of COPD and hy sterectomy who presented to the hospital with complaints of nausea, vomiting, abdominal distention, and constipation. She was diagnosed with partial small bowel obstruction. The patient was managed conservatively for 72 hours with bowel rest and IV hydration. Her bowel function returned spontaneously. She was started on soft diet and tolerated it well. Resuscitation Status: 10/04/20 22:04 Resuscitation Status Routine Resuscitation Status: FULL: Full Resuscitation - Labs Lab Results: 10/07/20 05:18 10/07/20 05:18 Abnormal Lab Results - Last 48 hrs 10/06/20 05:36: Chloride 108 H, Calcium 7.5 L 10/06/20 05:36: Neutrophils % 94.2 H, Lymphocytes % 4.5 L, Neutrophils # 10.2 H, Lymphocytes # 0.5 L, Monocytes # 0.1 L 10/07/20 05:18: Calcium 7.4 L 10/07/20 05:18: RBC 4.10 L, Hgb 11.9 L, MCHC 31.5 L, Neutrophils % 92.1 H, Lymphocytes % 5.8 L, Neutrophils # 7.2 H, Lymphocytes # 0.5 L - Physical Exam Vitals: Vital Signs (12 hours) Temp Pulse Resp BP Pulse Ox 10/07/20 11:37 98.2 F 79 18 139/70 97 10/07/20 08:00 98.1 F 97 18 136/60 98 10/07/20 06:43 92 12 98 10/07/20 03:51 97.7 F 90 16 107/65 98 Weight Admit Weight 84 lb 14.032 oz Weight 84 lb 14.032 oz Physical Exam: The patient was seen and examined on the day of discharge. Problem - Problem (1) Small bowel obstruction Code(s): K56.609 - UNSP INTESTNL OBST, UNSP TO PARTIAL VERSUS COMPLETE OBST Status: Acute (2) COPD (chronic obstructive pulmonary disease) Status: Acute (3) Elevated troponin Code(s): R77.8 - OTHER SPECIFIED ABNORMALITIES OF PLASMA PROTEINS Status: Acute Plan - Discharge Medications Prescriptions: Bisacodyl [Dulcolax] 10 mg [place] DAILY PRN #30 supp PRN Reason: Constipation Polyethylene Glycol 3350 [Miralax] 17 gm PO DAILY PRN #30 pk PRN Reason: Constipation Home Medications: Medication Instructions Recorded Confirmed Type Alendronate Sodium [Fosamax] 70 mg PO Q7D 06/14/19 10/05/20 History Aspirin [Ecotrin Low Strength] 81 mg PO DAILY 06/14/19 10/05/20 History Budesonide-Formoterol [Symbicort 1 puff INH BID 06/14/19 10/05/20 History 160-4.5] Lisinopril [Zestril] 5 mg PO DAILY 06/14/19 10/05/20 History Simvastatin [Zocor] 10 mg PO HS 06/14/19 10/05/20 History Tiotropium Warren [Spiriva] 18 mcg IH DAILY 06/14/19 10/05/20 History Arformoterol [Brovana] 15 mcg IH BID 10/05/20 10/05/20 History Ipratropium/Albuterol Sulfate 3 ml NEB DAILY 10/05/20 10/05/20 History [DuoNeb] Bisacodyl [Dulcolax] 10 mg [place] DAILY PRN #30 supp 10/07/20 Rx Polyethylene Glycol 3350 [Miralax] 17 gm PO DAILY PRN #30 pk 10/07/20 Rx Allergies: No Known Allergies Allergy (Verified 10/04/20 23:59) - Follow up Plan Referrals: Unknown,Unknown [Primary Care Provider] - Disposition: HOME Quality - Care Measures CORE MEASURES:: N/A
--- NOTE | 2020-10-09 01:56 | PQF ---
Dear : Alnazeer. Del Rio Date 10/09/2020 Please exercise your independent, professional judgment in responding to the clarification form. Clinical indicators are provided on the bottom of this form for your review Can you please further clarify the nutritional status of the patient? Please check appropriate box(es): [ >] Protein Calorie Malnutrition: [ ] Mild [> ] Moderate [ ] Severe [ ] Other Malnutrition (please specify) [ ] Underweight without malnutrition [ ] Cachexia [ ] Other diagnosis [ ] Unable to determine Physician Signature: Date/Time: For continuity of documentation, please document condition throughout progress notes and discharge summary. Thank You. To be completed by CDI/Coding staff for physician review: Present Clinical Indicators - Signs / Symptoms / Labs Results and Location in Medical Record [ x ] Low BMI 16.0 Nutritional assessment 10/05 [ x ] Weight: 38.50kg Nutritional assessment 10/05 [ x ] Underweight patient Nutritional assessment 10/05 [ x ] Presents for abdominal pain H and P pg.4 Present Risk Factors Results and Location in Medical Record [ x ] SBO ED Provider pg.1 [ x ] Dehydration ED Provider pg.1 [ x ] COPD ED Provider pg.1 [ x ] Asthma ED Provider pg.1 [ x ] Former smoker ED Provider pg.1 [ x ] 80 years old H and P pg.1 Present Treatments Results and Location in Medical Record [ x ] Dietary consult Nutritional assessment 10/05 [ x ] Nutritional supplements Nutritional assessment 10/05 [ x ] IV Fluids MAR [ x ] Electrolyte replacement Protocol MAR [facility] Branch Manager Signature: Jhonathan Hancock Phone #: ext [phone] Date 10/09/2020 Moderate Malnutrition (in acute illness) ? Energy Intake: <75% of estimated energy requirement for > 7 days ? Weight Loss: 1-2%/1 week; 5%/ 1 month; 7.5%/3 months ? Other: mild body fat loss; mild muscle mass loss; mild fluid accumulation; Severe Malnutrition (in acute illness) ? Energy Intake: ? 50% of estimated energy requirement for ? 5 days ? Weight Loss: >2%/1 week; >5%/1 month; >7.5%/3 months ? Other: moderate body fat loss; moderate muscle mass loss; moderate- severe fluid accumulation; measurably reduced outsoles channel opener strength Moderate Malnutrition (in chronic illness) ? Energy Intake: <75% of estimated energy requirement for ?1 month ? Weight Loss: 5%/1 month; 7.5%/3 months; 10%/6 months; 20%/1 year ? Other: mild body fat loss; mild muscle mass loss; mild fluid accumulation Severe Malnutrition (in chronic illness) ? Energy Intake: ?75% of estimated energy requirement for ?1 month ? Weight Loss: >5%/1 month; >7.5%/3 months; >10%/6 months; >20%/1 year ? Other: severe body fat loss; severe muscle mass loss; severe fluid accumulation; measurably reduced outsoles channel opener strength This is a permanent part of the Medical Record MTDD
== END 2020-10-07 15:39 | disposition home or self-care (01) | DRG 389 ==
LOC: EDBD → ERS 17:43 → SURG B 20:52
PROVIDERS: ADMIT Internal Medicine; ATTEND Internal Medicine
DX: K56.600 Partial intestinal obstruction, unspecified as to cause (principal); E44.0 Moderate protein-calorie malnutrition; Z68.1 Body mass index [BMI] 19.9 or less, adult; Z20.822 Contact with and (suspected) exposure to COVID-19; J44.9 Chronic obstructive pulmonary disease, unspecified; E86.0 Dehydration; Z23 Encounter for immunization; R77.8 Other specified abnormalities of plasma proteins; Z90.710 Acquired absence of both cervix and uterus; Z79.52 Long term (current) use of systemic steroids; Z87.891 Personal history of nicotine dependence
CPT/HCPCS: 36415; 74177; 80048; 80053; 81003; 81015; 82553; 83690; 83735; 84484; 85025; 87635; 90471; 90662; 93005; 94640; 96374; 96375; G0008; J1650; J2270; J2405; J2920; J3475; J7620; Q9967; U0003; U0005